=== PATIENT | male | born 2000 | race Two or more races ===

== ENCOUNTER → 2022-12-20 | Emergency (ER) | payer OTHER ==
[~2022-12-20] VITALS: Ht 195.6 cm; Wt 95.3 kg
[~2022-12-20] MED LIST: CYCL5TAB PO; CYCLOBENZAPRINE 10 MG TABLET ONE; CYCLOBENZAPRINE 10 MG TABLET PO ONE; KETO10TA2 PO; KETOROLAC TROMETHAMINE INJ 30 MG/ML VIAL IM ONE; KETOROLAC TROMETHAMINE INJ 30 MG/ML VIAL ONE
[2022-12-20 14:32] VITALS: BP 128/64; TEMP 98; O2SAT 98
== END | disposition home or self-care (01) ==
LOC: ER 12:45
DX: M54.42 Lumbago with sciatica, left side (principal); Z60.2 Problems related to living alone
CPT/HCPCS: 99283; 96372; J1885